=== PATIENT | female | born 1975 | race Caucasian/White ===

== ENCOUNTER 2017-12-21 21:31 | Emergency (ER) | payer MEDICAID ==
[~2017-12-21] VITALS: Ht 170.2 cm; Wt 64.4 kg
[~2017-12-21 21:31] MED LIST: BACTRIM DS TAB1 EACH PO; FIORICET 50-321 EACH PO; KEFLEX500 MG PO; MACROBID 100 M100 M1 PO; NOHOMEMEDICATIONS; NORCO 5-325 TA1 EACH PO; ONDANSETRON HCL4 M2 PO; PHENAZOPYRIDIN200 M2 PO; ZOFRAN ODT4 MG PO
[2017-12-21 22:06] LABS: URINE BILIRUBIN NEGATIVE (Negative); URINE BLOOD 1+ (Negative); URINE CLARITY CLEAR; URINE COLOR YELLOW; URINE GLUCOSE-RANDOM NEGATIVE (Negative); URINE KETONES NEGATIVE (Negative); URINE LEUKOCYTES-REFLEX NEGATIVE (Negative); URINE NITRITE-REFLEX NEGATIVE (Negative); URINE PROTEIN NEGATIVE (Negative); URINE SPECIFIC GRAVITY >= 1.030 (1.005-1.030)
[2017-12-21 22:14] LABS: AMP/METHAMP POSITIVE (Negative); BARBITURATES Negative (Negative); BENZODIAZEPINES POSITIVE (Negative); COCAINE Negative (Negative); METHADONE Negative (Negative); OPIATES Negative (Negative); PCP Negative (Negative); THC Negative (Negative)
[2017-12-21 22:24] LABS: BACTERIA-REFLEX 1-9 Few /HPF (None Seen); CASTS None Seen /LPF (None Seen); SQUAMOUS 0-3 Few /LPF (0-3); URINE RBC 3-10 Few /HPF (0-2); URINE WBC-REFLEX 0-5 Rare /HPF (0-5)
[2017-12-21 22:25] LABS: AMORPHOUS URATES Moderate /LPF (None Seen)
[2017-12-21] MEDS ORDERED: TYLENOL EXTRA500 MG PO (22:35)
[2017-12-21] MEDS ORDERED: NAPROSYN500 MG PO (22:35)
[2017-12-21 22:42] VITALS: BP 144/96
== END 2017-12-21 22:43 | disposition home or self-care (01) ==
LOC: M.ERS 21:31
PROVIDERS: Physician Assistant
DX: M79.604 Pain in right leg (principal); F15.10 Other stimulant abuse, uncomplicated; J45.909 Unspecified asthma, uncomplicated; F41.9 Anxiety disorder, unspecified; F32.9 Major depressive disorder, single episode, unspecified; F17.210 Nicotine dependence, cigarettes, uncomplicated; Z88.0 Allergy status to penicillin

== ENCOUNTER 2020-03-09 20:20 | Emergency (ER) | payer MEDICAID ==
[~2020-03-09] VITALS: Ht 167.6 cm; Wt 85.3 kg
[~2020-03-09 20:20] MED LIST changes: +NAPROSYN500 MG PO; +TYLENOL EXTRA500 MG PO
[2020-03-09 20:51] LABS: INFLUENZA A ANTIGEN Negative (Negative); INFLUENZA B ANTIGEN Negative (Negative)
[2020-03-09] MEDS ORDERED: LOPRESSOR50 MG PO (21:23)
[2020-03-09] MEDS ORDERED: PROAIR HFA8.5 GM INH (21:25)
[2020-03-09] MEDS ORDERED: LORCET 5-325 M1 EACH PO (21:25)
[2020-03-09 21:37] VITALS: BP 182/114
== END 2020-03-09 21:37 | disposition home or self-care (01) ==
LOC: M.ERS 20:20
PROVIDERS: Emergency Medicine
DX: J06.9 Acute upper respiratory infection, unspecified (principal); I10 Essential (primary) hypertension; Z20.828 Contact with and (suspected) exposure to other viral communicable diseases; J45.909 Unspecified asthma, uncomplicated; F17.210 Nicotine dependence, cigarettes, uncomplicated; Z88.0 Allergy status to penicillin

== ENCOUNTER 2021-02-26 15:15 | Emergency (ER) | payer OTHER ==
[~2021-02-26] VITALS: Ht 170.2 cm; Wt 74.8 kg
[~2021-02-26 15:15] MED LIST changes: +LOPRESSOR50 MG PO; +LORCET 5-325 M1 EACH PO; +PROAIR HFA8.5 GM INH
[2021-02-26 19:55] VITALS: BP 158/123
== END 2021-02-26 19:56 | disposition home or self-care (01) ==
LOC: M.ERS 15:15
DX: R51.9 Headache, unspecified (principal); Z53.21 Procedure and treatment not carried out due to patient leaving prior to being seen by health care provider